=== PATIENT | female | born 1995 | race Caucasian/White ===

== ENCOUNTER 2017-03-05 22:59 | Emergency (ER) | payer BC, OTHER ==
[2017-03-05 23:06] VITALS: BMI 26.6
[2017-03-05 23:12] VITALS: BP 114/61
--- NOTE | 2017-03-05 23:44 | DR.GENAD ---
HPI - PCP Primary Care Physician: MARITZA - Complaint/Symptoms Chief Complaint:: CRAMPING/KIRILL LIKE PAIN; 14 WEEKS ; STARTED 40 MINUTES AGO; NOTICED BLOOD IN STOOL THIS EVENING; NO VAG SPOTTING Self Treatment fo Chief Complaint: CRAMPING STARTED 40 MINUTES AGO - Source History Provided: Patient - Mode of Arrival Mode of Arrival: Ambulatory - Timing Onset of Chief Complaint: 03/05/17 PMH - PMH Past Medical History: No Past Surgical History: No - Family History History of Family Medical Conditions: No - Social History Alcohol Use: None Do you use any recreational Drugs:: No Lives With: Spouse Lives Where: Home - infectious screening In the last 2 months have you had wt loss of >10#?: NO Have you had fever, night sweats or hemotysis?: No Have you traveled outside the country in the last 6 months?: No ROS - Review of Systems Eyes: No Symptoms Reported ENTM: No Symptoms Reported Respiratoy: No Symptoms Reported Cardiovascular: No Symptoms Reported Gastrointestinal/Abdominal: No Symptoms Reported Genitourinary: No Symptoms Reported Neurological: No Symptoms Reported Musculoskeletal: No Symptoms Reported Integumentary: No Symptoms Reported Hematologic/Lymphatic: No Symptoms Reported Endocrine: No Symptoms Reported Psychiatric: No Symptoms Reported All Other Systems: Reviewed and Negative PE - Vital Signs Vitals: Temperature 99.5 F Pulse Rate [Right Brachial] 94 Respiratory Rate 24 Blood Pressure [Left Arm] 114/61 Blood Pressure 131/56 O2 Sat by Pulse Oximetry 98 - General Limitations: No Limitations General Appearance: Alert, In No Apparent Distress - Head Head Exam: Normal Inspection, Atraumatic - Eyes Eye exam: Normal Appearance, PERRL, EOMI - ENT ENT Exam: Normal Exam External Ear Exam: Normal External Inspection TM/Canal Exam: Bilateral Normal Nose Exam: Normal Nose Exam Mouth Exam: Normal Inspection Throat Exam: Normal Inspection - Neck Neck Exam: Normal Inspection - Chest Chest Inspection: Normal Inspection - Respiratory Respiratory Exam: Normal Lung Sounds Bilat Respiratory Exam: Bilateral Clear to Auscultation - Cardiovascular Cardiovascular Exam: Regular Rate - Abdominal Exam Abdominal Exam: Normal Inspection, Normal Bowel Sounds Abdominal Tenderness: negative: RUQ, RLQ, LUQ, LLQ, Epigastrium, Suprapubic, Diffuse, Mild, Moderate, Severe, Other - Extremities Extremities Exam: Normal Inspection, Full ROM - Back Back Exam: Normal Inspection - Neurologic Neurological Exam: Alert, Oriented X3, CN II-XII Intact - Psychiatric Psychiatric Exam: Normal Affect - Skin Skin Exam: Warm, Dry, Intact ROR - Labs Reviewed Result Diagrams: 03/05/17 23:45 03/05/17 23:45 Laboratory: WBC 9.5 X10^3/uL (3.6-10.0) 03/05/17 23:45 RBC 4.18 X10^6/uL (3.5-5.4) 03/05/17 23:45 Hgb 12.8 g/dL (12.0-16.0) 03/05/17 23:45 Hct 37.0 % (36.0-47.0) 03/05/17 23:45 MCV 88.5 fL (80.0-100.0) 03/05/17 23:45 MCH 30.6 pg (27.0-34.0) 03/05/17 23:45 MCHC 34.6 g/dL (33.0-35.0) 03/05/17 23:45 RDW 13.0 % (11.6-16.5) 03/05/17 23:45 Plt Count 205 X10^3/uL (150.0-450.0) 03/05/17 23:45 MPV 9.5 fL (7.4-11.0) 03/05/17 23:45 Neut % 72.7 % (42.0-75.0) 03/05/17 23:45 Lymph % 16.2 % (21.0-51.0) L 03/05/17 23:45 [place] % 8.7 % (0.0-13.0) 03/05/17 23:45 Eos % 2.0 % (0.9-2.9) 03/05/17 23:45 Baso % 0.4 % (0.2-1.0) 03/05/17 23:45 Neut # 6.9 x10^3/uL (2.2-4.8) H 03/05/17 23:45 Lymph # 1.5 X10^3/uL (1.3-2.9) 03/05/17 23:45 [place] # 0.8 x10^3/uL (0.3-0.8) 03/05/17 23:45 Eos # 0.2 x10^3/uL (0.0-0.2) 03/05/17 23:45 Baso # 0.0 X10^3/uL (0.0-0.1) 03/05/17 23:45 Absolute Nucleated RBC 0.1 /100WBC 03/05/17 23:45 Sodium 139 mmol/L (136-145) 03/05/17 23:45 Corrected Sodium TNP 03/05/17 23:45 Potassium 3.7 mmol/L (3.5-5.1) 03/05/17 23:45 Chloride 105 mmol/L (98-107) 03/05/17 23:45 Carbon Dioxide 24.6 mmol/L (21-32) 03/05/17 23:45 BUN 7 mg/dL (7-18) 03/05/17 23:45 Creatinine 0.59 mg/dL (0.55-1.02) 03/05/17 23:45 Est GFR (MDRD) Af Amer > 60 (>60) 03/05/17 23:45 Est GFR (MDRD) Non-Af > 60 (>60) 03/05/17 23:45 Glucose 89 mg/dL (65-99) 03/05/17 23:45 Calcium 8.8 mg/dL (8.5-10.1) 03/05/17 23:45 HCG, Qual Positive >10 mIU/mL 03/05/17 23:45 HCG, Quant 20946 mIU/mL (0-6) H 03/05/17 23:45 - XRAY XRAY Interpreted by: Radiologist (OB US: Findings: A viable single intrauterine is identified with heart tones of 152 beats per minute. [place]- rump length measures 8.1cm. A cephalic presentation is observed with an anterior and fundal placenta. Impression: A viable single intrauterine with an average ultrasound age of 14 weeks, 0 days correspond to an estimated date of delivery of 09/04/2017) - Diagnosis Discharge Problem: Intrauterine - Discharge Plan Condition: Stable - Follow ups/Referrals Follow ups/Referrals: GUERO SALAS [Primary Care Provider] - 3 days - Instructions
[2017-03-06 00:04] LABS: BLOOD UREA NITROGEN 7 mg/dL (7-18); CALCIUM 8.8 mg/dL (8.5-10.1); CARBON DIOXIDE 24.6 mmol/L (21-32); CHLORIDE 105 mmol/L (98-107); CREATININE 0.59 mg/dL (0.55-1.02); SODIUM 139 mmol/L (136-145); eGFR BLACK RACES > 60 (>60); eGFR NON BLACK RACES > 60 (>60)
[2017-03-06 00:07] LABS: BASOPHILS % (AUTO) 0.4 % (0.2-1.0); EOSINOPHILS # (AUTO) 0.2 x10^3/uL (0.0-0.2); HEMOGLOBIN 12.8 g/dL (12.0-16.0); LYMPHOCYTES # (AUTO) 1.5 X10^3/uL (1.3-2.9); LYMPHOCYTES % (AUTO) 16.2 % (21.0-51.0); MEAN CORPUSCULAR HEMOGLOBIN 30.6 pg (27.0-34.0); MEAN CORPUSCULAR HGB CONC 34.6 g/dL (33.0-35.0); MEAN CORPUSCULAR VOLUME 88.5 fL (80.0-100.0); MEAN PLATELET VOLUME 9.5 fL (7.4-11.0); MONOCYTES # (AUTO) 0.8 x10^3/uL (0.3-0.8); MONOCYTES % (AUTO) 8.7 % (0.0-13.0); NEUTROPHILS # (AUTO) 6.9 x10^3/uL (2.2-4.8); NEUTROPHILS % (AUTO) 72.7 % (42.0-75.0); PLATELET COUNT 205 X10^3/uL (150.0-450.0); RED BLOOD COUNT 4.18 X10^6/uL (3.5-5.4); WHITE BLOOD COUNT 9.5 X10^3/uL (3.6-10.0)
[2017-03-06 00:14] LABS: SERUM PREGNANCY TEST, QUAL POSITIVE >10 mIU/mL
--- NOTE | 2017-03-06 01:41 | US ---
HISTORY: with cramping Study: OB ultrasound, limited Comparison: None for the current Technique: Multiple grayscale and color flow Doppler images of the pelvis were obtained with focused evaluation of the fetus. Findings: A viable single intrauterine is identified with heart tones of 152 beats per minute. [place]-rump length measures 8.1 cm. A cephalic presentation is observed with an anterior and fundal pl acenta. IMPRESSION: A viable single intrauterine with an average ultrasound age of 14 weeks, 0 days correspond to an estimated date of delivery of 09/04/2017. Reported By:
== END 2017-03-06 02:05 | disposition home or self-care (01) ==
LOC: ER 22:59
DX: R10.84 Generalized abdominal pain (principal); Z3A.14 14 weeks gestation of pregnancy
CPT/HCPCS: 36415; 76815; 80048; 84702; 84703; 85025; 99283; 99284

== ENCOUNTER 2017-07-15 22:45 | Emergency (ER) | payer BC, OTHER ==
[2017-07-15 23:26] VITALS: BP 117/55; BMI 32.5
[2017-07-15 23:44] LABS: BILIRUBIN,URINE NEGATIVE (NEGATIVE); BLOOD/HEMOGLOBIN,URINE 1+ (NEGATIVE); GLUCOSE, URINE NEGATIVE (NEGATIVE); KETONES,URINE NEGATIVE (NEGATIVE); LEUKOCYTE ESTERASE ,URINE NEGATIVE (NEGATIVE); NITRITES,URINE NEGATIVE (NEGATIVE); PH,URINE 6.5 (5.0 - 8.0); PROTEIN,URINE NEGATIVE (NEGATIVE); UROBILINOGEN,URINE NORMAL (NORMAL)
[2017-07-15 23:57] LABS: APPEARANCE,URINE SLIGHTLY HAZY (CLEAR); COLOR,URINE YELLOW (YELLOW)
[2017-07-15 23:58] LABS: AMORPHOUS SEDIMENT,UR 3+ /HPF (NEGATIVE); BACTERIA,URINE NEGATIVE /HPF (NEGATIVE); CALCIUM OXALATE CRYSTALS,UR FEW /HPF (NEGATIVE); RBC,URINE 0-2 /HPF (NONE SEEN); SQUAMOUS EPITHELIAL CELL,UR MODERATE /HPF (NEGATIVE)
== END 2017-07-16 00:11 | disposition home or self-care (01) ==
LOC: ER 22:45
DX: M54.89 Other dorsalgia (principal); Z3A.00 Weeks of gestation of pregnancy not specified
CPT/HCPCS: 81001; 99284

== ENCOUNTER 2017-07-25 18:37 | Emergency (ER) | payer BC, OTHER ==
[2017-07-25 18:57] VITALS: BP 116/75; BMI 31.9
[2017-07-25 19:05] LABS: BILIRUBIN,URINE NEGATIVE (NEGATIVE); BLOOD/HEMOGLOBIN,URINE NEGATIVE (NEGATIVE); GLUCOSE, URINE NEGATIVE (NEGATIVE); KETONES,URINE NEGATIVE (NEGATIVE); LEUKOCYTE ESTERASE ,URINE 1+ (NEGATIVE); NITRITES,URINE NEGATIVE (NEGATIVE); PROTEIN,URINE 1+ (NEGATIVE); UROBILINOGEN,URINE NORMAL (NORMAL)
[2017-07-25 19:15] LABS: AMORPHOUS SEDIMENT,UR 1+ /HPF (NEGATIVE); APPEARANCE,URINE CLOUDY (CLEAR); BACTERIA,URINE 1+ /HPF (NEGATIVE); COLOR,URINE YELLOW (YELLOW); SQUAMOUS EPITHELIAL CELL,UR FEW /HPF (NEGATIVE)
[2017-07-25] MEDS ORDERED: NS 1000 ML 1,000 ML IV ONE (19:20)
[2017-07-25] MEDS ORDERED: NS 1000 ML 1,000 ML ONE (19:23)
[2017-07-25] MEDS ORDERED: FLAGYL TAB 500 MG PO ONE (19:57)
[2017-07-25] MEDS ORDERED: FLAGYL TAB 250 MG PO ONE (20:02)
== END 2017-07-25 20:36 | disposition home or self-care (01) ==
LOC: ER 18:40
DX: O60.03 Preterm labor without delivery, third trimester (principal)
CPT/HCPCS: 81001; 87086; 96365; 99284; A4222

== ENCOUNTER 2017-08-17 00:33 | Inpatient (IN) ==
[~2017-08-17 00:33] MED LIST: D5 1/2 NS 1000 ML 1,000 ML IV ONE
[2017-08-17] MEDS ORDERED: PITOCIN IVP ONE (00:54)
[2017-08-17] MEDS ORDERED: PHENERGAN INJ 25 MG IVP PRN (00:54)
[2017-08-17] MEDS ORDERED: REGLAN INJ 10 MG VIAL IVP PRN (00:54)
[2017-08-17] MEDS ORDERED: D5LR 1L W PITOCIN 10 UNITS/L 10 UNITS/1,000 ML BAG IV PRN (00:54)
[2017-08-17] MEDS ORDERED: DILAUDID INJ IVP PRN (00:54)
[2017-08-17] MEDS ORDERED: NUBAIN INJ 200 MG VIAL MULTIDOSE IVP PRN (00:54)
[2017-08-17 00:56] VITALS: BMI 33.3
[2017-08-17] MEDS ORDERED: LR 1000 ML IV 1,000 ML IV ONE ×2 (00:57→01:00)
[2017-08-17] MEDS ORDERED: NAROPIN EPIDURAL 0.2% 97 ML with FENTANYL INJ 250 mcg 150 MCG EPI PRN ×2 (00:57)
[2017-08-17] MEDS ORDERED: D5 1/2 NS 1000 ML 1,000 ML IV SCH (01:00)
[2017-08-17] MEDS ORDERED: XYLOCAINE 1% and EPINEPHRINE 1:100,000 ONE (01:00)
[2017-08-17] MEDS ORDERED: AMPICILLIN VIAL 2 GRAM 2 G in NS 100 ML IV + SPIKE MINIBAG* 100 ML IV SCH (01:00)
[2017-08-17] MEDS ORDERED: FENTANYL INJ 100 mcg ONE (01:01)
[2017-08-17] MEDS ORDERED: NS 100 ML IV 100 ML IV ONE (01:01)
[2017-08-17] MEDS ORDERED: PITOCIN ONE (01:01)
[2017-08-17] MEDS ORDERED: XYLOCAINE-MPF 1% ONE (01:01)
[2017-08-17] MEDS ORDERED: NAROPIN EPIDURAL 0.2% + FENTANYL 90MCG 60 ML EPI ONE (01:02)
[2017-08-17] MEDS ORDERED: D5 1/2 NS 1L W PITOCIN 20 UNITS/L 20 UNITS/1,000 ML BAG IV ONE (01:02)
[2017-08-17 01:10] LABS: BASOPHILS % (AUTO) 0.3 % (0.2-1.0); BLOOD UREA NITROGEN 6 mg/dL (7-18); CALCIUM 9.6 mg/dL (8.5-10.1); CARBON DIOXIDE 20.3 mmol/L (21-32); CHLORIDE 105 mmol/L (98-107); CREATININE 0.76 mg/dL (0.55-1.02); EOSINOPHILS # (AUTO) 0.2 x10^3/uL (0.0-0.2); HEMATOCRIT 37.7 % (36.0-47.0); HEMOGLOBIN 13.2 g/dL (12.0-16.0); LYMPHOCYTES # (AUTO) 2.7 X10^3/uL (1.3-2.9); LYMPHOCYTES % (AUTO) 18.2 % (21.0-51.0); MEAN CORPUSCULAR HEMOGLOBIN 31.4 pg (27.0-34.0); MEAN CORPUSCULAR VOLUME 89.7 fL (80.0-100.0); MEAN PLATELET VOLUME 10.3 fL (7.4-11.0); MONOCYTES # (AUTO) 1.1 x10^3/uL (0.3-0.8); MONOCYTES % (AUTO) 7.2 % (0.0-13.0); NEUTROPHILS # (AUTO) 10.9 x10^3/uL (2.2-4.8); NEUTROPHILS % (AUTO) 73.3 % (42.0-75.0); PLATELET COUNT 246 X10^3/uL (150.0-450.0); RED CELL DISTRIBUTION WIDTH 13.8 % (11.6-16.5); SODIUM 138 mmol/L (136-145); WHITE BLOOD COUNT 14.9 X10^3/uL (3.6-10.0); eGFR NON BLACK RACES > 60 (>60)
[2017-08-17] MEDS: AMPICILLIN VIAL 2 GRAM ONE ×2 (01:25→02:26)
[2017-08-17 01:53] LABS: BILIRUBIN,URINE NEGATIVE (NEGATIVE); BLOOD/HEMOGLOBIN,URINE NEGATIVE (NEGATIVE); GLUCOSE, URINE NEGATIVE (NEGATIVE); KETONES,URINE NEGATIVE (NEGATIVE); LEUKOCYTE ESTERASE ,URINE NEGATIVE (NEGATIVE); NITRITES,URINE NEGATIVE (NEGATIVE); PH,URINE 6.5 (5.0 - 8.0); PROTEIN,URINE NEGATIVE (NEGATIVE); UROBILINOGEN,URINE NORMAL (NORMAL)
[2017-08-17 01:55] LABS: APPEARANCE,URINE CLEAR (CLEAR); COLOR,URINE YELLOW (YELLOW)
[2017-08-17] MEDS ORDERED: AMPICILLIN VIAL 1 GRAM 1 G in NS 50 ML IV + SPIKE MINIBAG* 50 ML IV SCH (04:56)
[2017-08-17] MEDS ORDERED: PHENERGAN INJ 25 MG IV PRN (06:50)
--- NOTE | 2017-08-17 06:50 | DR.OB ---
OB Quick Note - Assessment/Plan Assessment/Plan: Delivery Note [employer] 08/17/17 at 6:38am Patient complete and pushing. Head delivered over intact perineum. No nuchal cord. Nose and mouth bulb suctioned. Body delivered over intact perineum with cord noted around trunk. Cord clamped x 2 and cut. handed to attendant. Cord sent for gases. Placenta delivered spontaneously / intact / 3 vessel cord. No CVX / vaginal / perineal tears. Viable male infant, VTX/OA, wt =6'6" and 9/9, stable to NBN. Mother stable to RR. JWS=165as.
[2017-08-17] MEDS ORDERED: PHENERGAN INJ 25 MG ONE (06:59)
[2017-08-17] MEDS: D5 1/2 NS 1000 ML 1,000 ML with PITOCIN 20 UNITS IV SCH ×6 (07:24→23:50)
[2017-08-17] MEDS ORDERED: MILK OF MAGNESIA PO PRN (07:25)
[2017-08-17] MEDS ORDERED: DERMOPLAST SPRAY TOP PRN (07:25)
[2017-08-17] MEDS ORDERED: AMBIEN PO PRN (07:25)
[2017-08-17] MEDS ORDERED: ADACEL or BOOSTRIX TDaP VACCINE IM ONE (07:25)
[2017-08-17] MEDS ORDERED: HYPERRHO S/D (or RHOGAM) IM PRN (07:25)
[2017-08-17] MEDS: ZANTAC PO SCH ×2 (09:14→20:09)
[2017-08-17] MEDS: PRENATAL PLUS PO SCH (09:14)
[2017-08-17] MEDS: MOTRIN TAB 800 MG PO PRN (20:09)
[2017-08-18 05:40] LABS: HEMATOCRIT 32.4 % (36.0-47.0); HEMOGLOBIN 11.1 g/dL (12.0-16.0)
[2017-08-18] MEDS: MOTRIN TAB 800 MG PO PRN (07:28)
[2017-08-18] MEDS: ZANTAC PO SCH ×2 (08:08→20:28)
[2017-08-18] MEDS: PRENATAL PLUS PO SCH (08:08)
[2017-08-18] MEDS: D5 1/2 NS 1000 ML 1,000 ML with PITOCIN 20 UNITS IV SCH ×2 (17:00)
[2017-08-19] MEDS: D5 1/2 NS 1000 ML 1,000 ML with PITOCIN 20 UNITS IV SCH ×4 (00:14→07:16)
[2017-08-19] MEDS: PRENATAL PLUS PO SCH (09:09)
[2017-08-19] MEDS: ZANTAC PO SCH (09:09)
[2017-08-19 12:09] VITALS: BP 121/73
== END 2017-08-19 12:45 | disposition home or self-care (01) | DRG 775 ==
LOC: ER 00:33 → LD 00:54 → MED/SURG 07:23
PROVIDERS: ADMIT Specialist; ATTEND Specialist
DX: O99.613 Diseases of the digestive system complicating pregnancy, third trimester; O99.824 Streptococcus B carrier state complicating childbirth; O36.0930 Maternal care for other rhesus isoimmunization, third trimester, not applicable or unspecified; Z3A.37 37 weeks gestation of pregnancy; Z37.0 Single live birth; Z23 Encounter for immunization; B95.1 Streptococcus, group B, as the cause of diseases classified elsewhere
CPT/HCPCS: 36415; 59409; 80048; 81003; 85014; 85018; 85025; 86592; 86850; 86900; 86901; 90715; 96365; 99284; A4222; S0197; J0290; J2550; J2590; J3010; J7050; J7120; S5010

== ENCOUNTER 2019-04-30 07:03 | Observation (INO) ==
[2019-04-30 07:21] VITALS: BMI 24.5
[2019-04-30] MEDS ORDERED: ZOFRAN INJ 4 MG VIAL IVP ONE (07:29)
[2019-04-30] MEDS ORDERED: NS 1000 ML 1,000 ML IV ONE (07:29)
[2019-04-30] MEDS ORDERED: NS 1000 ML 1,000 ML ONE (07:33)
[2019-04-30] MEDS ORDERED: ZOFRAN INJ 4 MG VIAL ONE (07:34)
--- NOTE | 2019-04-30 07:36 | ED.ABDFE ---
HPI <Alina Reese - Last Filed: 04/30/19 07:52> Time Seen Time Seen by Provider: 04/30/19 07:25 PCP Primary Care Physician: KURTIS GARCIA HPI Comment HPI Comment: Started w/lower abd cramping last night and awakened w/n/v this am which has persisted; no fever, chills or vaginal bleeding; loose, watery stool around 6 am this morning; 14 weeks ; third ; to see Dr Andrews next week. Complaint Chief Complaint:: PT STATES SHE IS 14 WEEK PREG, PT C/O N/V AND ABD CRAMPING ,BR Self Treatment fo Chief Complaint: BRUCE- Oct LMP- Source History Provided: Patient Mode of arrival Mode of Arrival: Ambulatory Timing Onset of Chief Complaint: 04/29/19 PMH <Alina Reese - Last Filed: 04/30/19 07:52> PMH Past Medical History: No Past Surgical History: No Family History History of Family Medical Conditions: No Social History Does patient currently use any type of tobacco product: No Have you used tobacco products in the last 12 months: No Type of Tobacco Use: None Does any household member use tobacco: No Do you use any recreational Drugs:: No Lives With: Family Lives Where: Home infectious screening In the last 2 months have you had wt loss of >10#?: NO Have you had fever, night sweats or hemotysis?: No Have you traveled outside the country in the last 6 months?: No Isolation: Standard ROS <Alina Hugh - Last Filed: 04/30/19 07:52> Review of Systems Constitutional: See HPI and Malaise Respiratoy: No Symptoms Reported Cardiovascular: No Symptoms Reported Gastrointestinal/Abdominal: See HPI Genitourinary: Frequency (no dysuria or hematuria) Neurological: No Symptoms Reported Musculoskeletal: No Symptoms Reported Integumentary: No Symptoms Reported Hematologic/Lymphatic: No Symptoms Reported Endocrine: No Symptoms Reported PE <Alina Reese - Last Filed: 04/30/19 07:52> Vital Signs Vitals: Temperature 97.5 F Pulse Rate 107 Respiratory Rate 20 Blood Pressure [Right Arm] 123/78 Blood Pressure 83/48 O2 Sat by Pulse Oximetry 100 General Limitations: No Limitations General Appearance: Alert (obviously uncomfortable, actively throwing up) Head Head Exam: Normal Inspection, Atraumatic and Normocephalic Eyes Eye exam: Normal Appearance, PERRL and EOMI ENT ENT Exam: Normal Exam Neck Neck Exam: Normal Inspection, Full ROM and Trachea Midline Chest Chest Inspection: Normal Inspection Respiratory Respiratory Exam: Normal Lung Sounds Bilat Respiratory Exam: Bilateral: Clear to Auscultation Cardiovascular Cardiovascular Exam: Normal Rhythm and Tachycardia Abdominal Exam Abdominal Exam: Normal Inspection, Soft and Tenderness Abdominal Tenderness: Suprapubic and Mild Extremeties Extremities Exam: Normal Inspection, Full ROM and Tenderness Neurologic Neurological Exam: Alert, Oriented X3 and CN II-XII Intact Skin Skin Exam: Warm and Dry <Aryan Zenialissette - Last Filed: 04/30/19 10:15> Vital Signs Vitals: Temperature 97.5 F Pulse Rate 107 Respiratory Rate 20 Blood Pressure [Right Arm] 123/78 Blood Pressure 83/48 O2 Sat by Pulse Oximetry 100 <Aryan Yesenia - Last Filed: 04/30/19 10:15> Differential Diagnosis Differential Diagnosis- Considerations may include:: Appendicitis, Bowel Obstruction, Cholcystitis, Cholelethiasis, Constipation, Diverticular disease, Gastritus/PUD, Urinary obstruction and Urinary tract infection <Aryan Yesenia - Last Filed: 04/30/19 10:15> Treatment Treatment: pt was given IV bolus, Zofran, pt stated understanding of risk and benefit to fetus with use of zofran Reevaluation 1st: Improved (08:30 stable abdominal pain improved) 2nd: Unchanged (09:38 discussed w/ pt finding on US and how pt was going to be admitted ) Consultation Consultation Comments: Dr. Anne accepts admission at 09:38 Dr. Horvath discussed case with him @ 09:25 Education/Counseling Education/Counseling: Patient, Family, Education and Counseling Educated On: Treatment, Diagnosis, Prognosis and Needs for Follow Up ROR <Alina Reese - Last Filed: 04/30/19 07:52> Labs Reviewed Result Diagrams: 04/30/19 07:40 04/30/19 07:40 Laboratory: WBC 19.6 X10^3/uL (3.6-10.0) H 04/30/19 07:40 RBC 4.64 X10^6/uL (3.5-5.4) 04/30/19 07:40 Hgb 14.4 g/dL (12.0-16.0) 04/30/19 07:40 Hct 41.9 % (36.0-47.0) 04/30/19 07:40 MCV 90.3 fL (80.0-100.0) 04/30/19 07:40 MCH 31.0 pg (27.0-34.0) 04/30/19 07:40 MCHC 34.3 g/dL (33.0-35.0) 04/30/19 07:40 RDW 14.0 % (11.6-16.5) 04/30/19 07:40 Plt Count 223 X10^3/uL (150.0-450.0) 04/30/19 07:40 Plt Count Comment Adequate (ADEQUATE) 04/30/19 07:40 MPV 9.3 fL (7.4-11.0) 04/30/19 07:40 Neut % (Auto) 92.9 % (42.0-75.0) H 04/30/19 07:40 Lymph % (Auto) 2.0 % (21.0-51.0) L 04/30/19 07:40 [place] % (Auto) 4.8 % (0.0-13.0) 04/30/19 07:40 Eos % (Auto) 0.1 % (0.9-2.9) L 04/30/19 07:40 Baso % (Auto) 0.2 % (0.2-1.0) 04/30/19 07:40 Neut # (Auto) 18.2 x10^3/uL (2.2-4.8) H 04/30/19 07:40 Lymph # (Auto) 0.4 X10^3/uL (1.3-2.9) L 04/30/19 07:40 [place] # (Auto) 0.9 x10^3/uL (0.3-0.8) H 04/30/19 07:40 Eos # (Auto) 0.0 x10^3/uL (0.0-0.2) 04/30/19 07:40 Baso # (Auto) 0.0 X10^3/uL (0.0-0.1) 04/30/19 07:40 Absolute Nucleated RBC 0.0 /100WBC 04/30/19 07:40 Total Counted 100 04/30/19 07:40 Neutrophils % (Manual) 89 % (39-76) H 04/30/19 07:40 Band Neutrophils % 3 % (0-10) 04/30/19 07:40 Lymphocytes % (Manual) 7 % (13-43) L 04/30/19 07:40 Monocytes % (Manual) 1 % (4-9) L 04/30/19 07:40 Plt Morphology Comment Normal (NORMAL) 04/30/19 07:40 RBC Morphology Normal (NORMAL) 04/30/19 07:40 Sodium 137 mmol/L (136-145) 04/30/19 07:40 Corrected Sodium TNP 04/30/19 07:40 Potassium 3.6 mmol/L (3.5-5.1) 04/30/19 07:40 Chloride 102 mmol/L (98-107) 04/30/19 07:40 Carbon Dioxide 23.9 mmol/L (21-32) 04/30/19 07:40 BUN 11 mg/dL (7-18) 04/30/19 07:40 Creatinine 0.69 mg/dL (0.55-1.02) 04/30/19 07:40 Est GFR (MDRD) Af Amer > 60 (>60) 04/30/19 07:40 Est GFR (MDRD) Non-Af > 60 (>60) 04/30/19 07:40 Glucose 101 mg/dL (65-99) H 04/30/19 07:40 Calcium 8.9 mg/dL (8.5-10.1) 04/30/19 07:40 Corrected Calcium TNP 04/30/19 07:40 Total Bilirubin 0.70 mg/dL (0.2-1.0) 04/30/19 07:40 AST 18 Units/L (15-37) 04/30/19 07:40 ALT 21 Units/L (12-78) 04/30/19 07:40 Alkaline Phosphatase 58 Units/L (46-116) 04/30/19 07:40 Total Protein 7.6 g/dL (6.4-8.2) 04/30/19 07:40 Albumin 3.5 g/dL (3.4-5.0) 04/30/19 07:40 Globulin 4.1 g/dL (2.5-4.5) 04/30/19 07:40 Albumin/Globulin Ratio 0.9 Ratio (1.1-2.1) L 04/30/19 07:40 HCG, Quant 71635 mIU/mL (0-6) H 04/30/19 07:40 Specimen Type Clean catch urine 04/30/19 08:38 Urine Color Yellow (YELLOW) 04/30/19 08:38 Urine Appearance Hazy (CLEAR) 04/30/19 08:38 Urine pH 5.0 (5.0 - 8.0) 04/30/19 08:38 Ur Specific [place] 1.020 (1.000-1.030) 04/30/19 08:38 Urine Protein 1+ (NEGATIVE) 04/30/19 08:38 Urine Glucose (UA) Negative (NEGATIVE) 04/30/19 08:38 Urine Ketones 2+ (NEGATIVE) 04/30/19 08:38 Urine Occult Blood Negative (NEGATIVE) 04/30/19 08:38 Urine Nitrite Negative (NEGATIVE) 04/30/19 08:38 Urine Bilirubin 1+ (NEGATIVE) 04/30/19 08:38 Urine Urobilinogen Normal (NORMAL) 04/30/19 08:38 Ur Leukocyte Esterase 1+ (NEGATIVE) 04/30/19 08:38 Urine RBC 0-2 /HPF (0-3) 04/30/19 08:38 Urine WBC 0-2 /HPF (0-5) 04/30/19 08:38 Ur Squamous Epith Cells Few /HPF (NEGATIVE) 04/30/19 08:38 Urine Bacteria Negative /HPF (NEGATIVE) 04/30/19 08:38 Urine Mucus Few /HPF (NEGATIVE) 04/30/19 08:38 Ur Culture Indicated? No/not indicated 04/30/19 08:38 <Aryan Patterson - Last Filed: 04/30/19 10:15> Labs Reviewed Laboratory Results Reviewed?: Yes Laboratory: WBC 19.6 X10^3/uL (3.6-10.0) H 04/30/19 07:40 RBC 4.64 X10^6/uL (3.5-5.4) 04/30/19 07:40 Hgb 14.4 g/dL (12.0-16.0) 04/30/19 07:40 Hct 41.9 % (36.0-47.0) 04/30/19 07:40 MCV 90.3 fL (80.0-100.0) 04/30/19 07:40 MCH 31.0 pg (27.0-34.0) 04/30/19 07:40 MCHC 34.3 g/dL (33.0-35.0) 04/30/19 07:40 RDW 14.0 % (11.6-16.5) 04/30/19 07:40 Plt Count 223 X10^3/uL (150.0-450.0) 04/30/19 07:40 Plt Count Comment Adequate (ADEQUATE) 04/30/19 07:40 MPV 9.3 fL (7.4-11.0) 04/30/19 07:40 Neut % (Auto) 92.9 % (42.0-75.0) H 04/30/19 07:40 Lymph % (Auto) 2.0 % (21.0-51.0) L 04/30/19 07:40 [place] % (Auto) 4.8 % (0.0-13.0) 04/30/19 07:40 Eos % (Auto) 0.1 % (0.9-2.9) L 04/30/19 07:40 Baso % (Auto) 0.2 % (0.2-1.0) 04/30/19 07:40 Neut # (Auto) 18.2 x10^3/uL (2.2-4.8) H 04/30/19 07:40 Lymph # (Auto) 0.4 X10^3/uL (1.3-2.9) L 04/30/19 07:40 [place] # (Auto) 0.9 x10^3/uL (0.3-0.8) H 04/30/19 07:40 Eos # (Auto) 0.0 x10^3/uL (0.0-0.2) 04/30/19 07:40 Baso # (Auto) 0.0 X10^3/uL (0.0-0.1) 04/30/19 07:40 Absolute Nucleated RBC 0.0 /100WBC 04/30/19 07:40 Total Counted 100 04/30/19 07:40 Neutrophils % (Manual) 89 % (39-76) H 04/30/19 07:40 Band Neutrophils % 3 % (0-10) 04/30/19 07:40 Lymphocytes % (Manual) 7 % (13-43) L 04/30/19 07:40 Monocytes % (Manual) 1 % (4-9) L 04/30/19 07:40 Plt Morphology Comment Normal (NORMAL) 04/30/19 07:40 RBC Morphology Normal (NORMAL) 04/30/19 07:40 Sodium 137 mmol/L (136-145) 04/30/19 07:40 Corrected Sodium TNP 04/30/19 07:40 Potassium 3.6 mmol/L (3.5-5.1) 04/30/19 07:40 Chloride 102 mmol/L (98-107) 04/30/19 07:40 Carbon Dioxide 23.9 mmol/L (21-32) 04/30/19 07:40 BUN 11 mg/dL (7-18) 04/30/19 07:40 Creatinine 0.69 mg/dL (0.55-1.02) 04/30/19 07:40 Est GFR (MDRD) Af Amer > 60 (>60) 04/30/19 07:40 Est GFR (MDRD) Non-Af > 60 (>60) 04/30/19 07:40 Glucose 101 mg/dL (65-99) H 04/30/19 07:40 Calcium 8.9 mg/dL (8.5-10.1) 04/30/19 07:40 Corrected Calcium TNP 04/30/19 07:40 Total Bilirubin 0.70 mg/dL (0.2-1.0) 04/30/19 07:40 AST 18 Units/L (15-37) 04/30/19 07:40 ALT 21 Units/L (12-78) 04/30/19 07:40 Alkaline Phosphatase 58 Units/L (46-116) 04/30/19 07:40 Total Protein 7.6 g/dL (6.4-8.2) 04/30/19 07:40 Albumin 3.5 g/dL (3.4-5.0) 04/30/19 07:40 Globulin 4.1 g/dL (2.5-4.5) 04/30/19 07:40 Albumin/Globulin Ratio 0.9 Ratio (1.1-2.1) L 04/30/19 07:40 HCG, Quant 42514 mIU/mL (0-6) H 04/30/19 07:40 Specimen Type Clean catch urine 04/30/19 08:38 Urine Color Yellow (YELLOW) 04/30/19 08:38 Urine Appearance Hazy (CLEAR) 04/30/19 08:38 Urine pH 5.0 (5.0 - 8.0) 04/30/19 08:38 Ur Specific [place] 1.020 (1.000-1.030) 04/30/19 08:38 Urine Protein 1+ (NEGATIVE) 04/30/19 08:38 Urine Glucose (UA) Negative (NEGATIVE) 04/30/19 08:38 Urine Ketones 2+ (NEGATIVE) 04/30/19 08:38 Urine Occult Blood Negative (NEGATIVE) 04/30/19 08:38 Urine Nitrite Negative (NEGATIVE) 04/30/19 08:38 Urine Bilirubin 1+ (NEGATIVE) 04/30/19 08:38 Urine Urobilinogen Normal (NORMAL) 04/30/19 08:38 Ur Leukocyte Esterase 1+ (NEGATIVE) 04/30/19 08:38 Urine RBC 0-2 /HPF (0-3) 04/30/19 08:38 Urine WBC 0-2 /HPF (0-5) 04/30/19 08:38 Ur Squamous Epith Cells Few /HPF (NEGATIVE) 04/30/19 08:38 Urine Bacteria Negative /HPF (NEGATIVE) 04/30/19 08:38 Urine Mucus Few /HPF (NEGATIVE) 04/30/19 08:38 Ur Culture Indicated? No/not indicated 04/30/19 08:38 Other Results Comments: US gallbladder shows: gallstones without cholecystitis US obgyn: see below Name: UZMA GARDNER : 1995 Sex: F Location: ER Order Number(s): [id number] Procedure(s):OB GREATER THAN 14 WEEKS LIMIT Ordering Physician: Alina Reese Primary Care: Flakita Coelho Service Date: 04/30/19 Service Time: 0729 HISTORY , right upper quadrant abdominal pain, nausea, vomiting STUDY OB GREATER THAN 14 WEEKS LIMIT Technique: Multiple grayscale sonographic images were obtained. COMPARISON None FINDINGS There is a single intrauterine gestation in transverse lie. The placenta is anterior and extends to the right. heart rate 153 beats per minute. Amniotic fluid volume was visually normal. Biparietal diameter 2.04 cm corresponding to 13 weeks 2 days. Head circumference 8.3 cm corresponding to 13 weeks 6 days. Abdominal circumference the 7.29 cm corresponding to 13 weeks days. Femur length 1.16 cm corresponding to 13 weeks 3 days. Estimated weight 79 grams IMPRESSION Single viable intrauterine gestation 13 weeks 4 days +/-1 week gestational age with an estimated date of delivery 11/01/2019 XRAY XRAY Interpreted by: Both Opioid <Alina Reese - Last Filed: 04/30/19 07:52> Opioid Risk Tool Age ([place] box if 16-45): Yes History of Preadolescent Sexual Abuse: No Total: 1 Total Score Risk Category: Low Risk Copyright: Thaddeus CHAO predicting aberrant behaviors <Aryan Patterson - Last Filed: 04/30/19 10:15> Opioid Risk Tool Total: 0 Total Score Risk Category: Low Risk <Alina Reese - Last Filed: 04/30/19 07:52> Diagnosis Discharge Problem: Intractable abdominal pain Cholelithiasis Qualifiers: Cholelithiasis location: gallbladder Cholecystitis presence: without cholecystitis Biliary obstruction: without biliary obstruction Qualified Code(s): K80.20 - Calculus of gallbladder without cholecystitis without obstruction Abdominal pain Qualifiers: Abdominal location: generalized Qualified Code(s): R10.84 - Generalized abdominal pain Instructions Forms: Excuse From Work Patient Portal <Aryan Patterson - Last Filed: 04/30/19 10:15> Diagnosis Narrative Support Text: Today the patient was seen in the emergency department. All labs, imaging, consults with other specialists, and procedures were discussed with the patient and or patients family. All emergent needs such as pain mgmt, medical mgmt, Procedures, or consultations were addressed. The care plan has been discussed with the patient and or patients family. Patient and or family stated agreement and understanding of risks and benefits of care plans.
[2019-04-30] MEDS ORDERED: AMOXIL CAP 500 MG PO ONE (07:55)
[2019-04-30 08:03] LABS: BASOPHILS % (AUTO) 0.2 % (0.2-1.0); EOSINOPHILS % (AUTO) 0.1 % (0.9-2.9); HEMATOCRIT 41.9 % (36.0-47.0); HEMOGLOBIN 14.4 g/dL (12.0-16.0); LYMPHOCYTES # (AUTO) 0.4 X10^3/uL (1.3-2.9); MEAN CORPUSCULAR HGB CONC 34.3 g/dL (33.0-35.0); MEAN CORPUSCULAR VOLUME 90.3 fL (80.0-100.0); MEAN PLATELET VOLUME 9.3 fL (7.4-11.0); MONOCYTES # (AUTO) 0.9 x10^3/uL (0.3-0.8); MONOCYTES % (AUTO) 4.8 % (0.0-13.0); NEUTROPHILS # (AUTO) 18.2 x10^3/uL (2.2-4.8); NEUTROPHILS % (AUTO) 92.9 % (42.0-75.0); PLATELET COUNT 223 X10^3/uL (150.0-450.0); RED BLOOD COUNT 4.64 X10^6/uL (3.5-5.4); WHITE BLOOD COUNT 19.6 X10^3/uL (3.6-10.0)
[2019-04-30 08:07] LABS: ALANINE AMINOTRANSFERASE 21 Units/L (12-78); ALBUMIN 3.5 g/dL (3.4-5.0); ALKALINE PHOSPHATASE 58 Units/L (46-116); ASPARTATE AMINO TRANSFERASE 18 Units/L (15-37); BLOOD UREA NITROGEN 11 mg/dL (7-18); CALCIUM 8.9 mg/dL (8.5-10.1); CARBON DIOXIDE 23.9 mmol/L (21-32); CHLORIDE 102 mmol/L (98-107); CREATININE 0.69 mg/dL (0.55-1.02); SODIUM 137 mmol/L (136-145); TOTAL PROTEIN 7.6 g/dL (6.4-8.2); eGFR NON BLACK RACES > 60 (>60)
[2019-04-30 08:08] LABS: BAND NEUTROPHILS % 3 % (0-10)
[2019-04-30 08:09] LABS: PLATELET MORPHOLOGY COMMENT NORMAL (NORMAL)
[2019-04-30 08:41] LABS: HCG,QUANTITATIVE 39033 mIU/mL (0-6)
[2019-04-30 08:46] LABS: APPEARANCE,URINE HAZY (CLEAR); BILIRUBIN,URINE 1+ (NEGATIVE); BLOOD/HEMOGLOBIN,URINE NEGATIVE (NEGATIVE); COLOR,URINE YELLOW (YELLOW); GLUCOSE, URINE NEGATIVE (NEGATIVE); KETONES,URINE 2+ (NEGATIVE); LEUKOCYTE ESTERASE ,URINE 1+ (NEGATIVE); NITRITES,URINE NEGATIVE (NEGATIVE); PROTEIN,URINE 1+ (NEGATIVE); UROBILINOGEN,URINE NORMAL (NORMAL)
[2019-04-30 08:53] LABS: BACTERIA,URINE NEGATIVE /HPF (NEGATIVE); MUCUS,URINE FEW /HPF (NEGATIVE); RBC,URINE 0-2 /HPF (0-3); SQUAMOUS EPITHELIAL CELL,UR FEW /HPF (NEGATIVE)
--- NOTE | 2019-04-30 09:16 | US ---
HISTORYRight upper quadrant painSTUDYRight upper quadrant ultrasoundTechnique: Multiple grayscale sonographic images were obtained.COMPARISONNoneFINDINGSLiver is normal in size and configuration and without cyst, mass, or biliary ductal dilatation. Multiple gallstones are present within the gallbladder. There are no findings suggestive of cholecystitis. The head and body of the pancreas appear normal. The tail is obscured by overlying bowel gas. Gallbladder wall thickness is normal. The common duct measured 1.3 mm. The right kidney measured 9.6 cm in length. No solid masses, hydronephrosis, stones, or perinephric fluid collections are identified.IMPRESSIONCholelithiasis without evidence for cholecystitisElectronically signed by: RK ARCHULETA (Apr 30, 2019 09:14:30)
--- NOTE | 2019-04-30 09:38 | US ---
HISTORY, right upper quadrant abdominal pain, nausea, vomitingSTUDYOB GREATER THAN 14 WEEKS LIMITTechnique: Multiple grayscale sonographic images were obtained.COMPARISONNoneFINDINGSThere is a single intrauterine gestation in transverse lie. The placenta is anterior and extends to the right. heart rate 153 beats per minute. Amniotic fluid volume was visually normal. Biparietal diameter 2.04 cm corresponding to 13 weeks 2 days. Head circumference 8.3 cm corresponding to 13 weeks 6 days. Abdominal circumference the 7.29 cm corresponding to 13 weeks days. Femur length 1.16 cm corresponding to 13 weeks 3 days. Estimated weight 79 gramsIMPRESSIONSingle viable intrauterine gestation 13 weeks 4 days +/-1 week gestational age with an estimated date of delivery 11/01/2019Electronically signed by: RK ARCHULETA (Apr 30, 2019 09:38:13)
[2019-04-30] MEDS ORDERED: ZOFRAN INJ 4 MG VIAL IVP PRN ×2 (10:14→12:06)
[2019-04-30] MEDS ORDERED: NS 1000 ML 1,000 ML IV SCH ×2 (11:00→12:00)
[2019-04-30] MEDS: NS 1000 ML 1,000 ML IV SCH ×2 (13:37→22:33)
[2019-04-30 13:44] LABS: AMYLASE 76 Units/L (25-115); LIPASE 134 Units/L (73-393)
[2019-04-30] MEDS ORDERED: POTASSIUM CHLORIDE IV SCH ×2 (14:00)
[2019-04-30] MEDS ORDERED: NS IV SCH ×2 (14:00)
[2019-04-30] MEDS ORDERED: TYLENOL 325 MG TAB PO PRN (17:12)
[2019-05-01] MEDS: NS 1000 ML 1,000 ML IV SCH (06:17)
--- NOTE | 2019-05-01 09:35 | DR.PROGNOT ---
Hospital Progress Notes - Progress Note for Day of: Progress Note Date: 05/01/19 - Chief Complaint Chief Complaint: still c/o mid and Rt side abdominal pain . no vomiting today and tolerating liquid diet . afebrile . - Past Medical Family Social History Past Med/Fam/Surg Hx: No changes since H&P Allergies: Allergies No Known Drug Allergies Allergy (Verified 04/30/19 07:15) - Review Of Systems ROS: No change since H&P - Vital Signs Vital Signs: Temperature 97.9 F Pulse Rate [Right] 90 Pulse Rate 114 Respiratory Rate 16 Blood Pressure [Right Arm] 85/48 Blood Pressure 88/50 O2 Sat by Pulse Oximetry 96 - Physical Exam Oriented: Normal Eyes: Normal Nose: Normal Respiratory: Normal Cardiovascular: Normal : Normal GI:Auscultation: Normal GI:Palpation: Normal GI: Tenderness: RUQ (soft, flat abdomen with Rt side and RUQ tenderness , BS+), Periumbilical Speech Pattern: Clear, Appropriate - Laboratory and Diagnostics Result Diagrams: 04/30/19 07:40 04/30/19 07:40 Labs: Laboratory WBC 19.6 X10^3/uL (3.6-10.0) H 04/30/19 07:40 RBC 4.64 X10^6/uL (3.5-5.4) 04/30/19 07:40 Hgb 14.4 g/dL (12.0-16.0) 04/30/19 07:40 Hct 41.9 % (36.0-47.0) 04/30/19 07:40 MCV 90.3 fL (80.0-100.0) 04/30/19 07:40 MCH 31.0 pg (27.0-34.0) 04/30/19 07:40 MCHC 34.3 g/dL (33.0-35.0) 04/30/19 07:40 RDW 14.0 % (11.6-16.5) 04/30/19 07:40 Plt Count 223 X10^3/uL (150.0-450.0) 04/30/19 07:40 Plt Count Comment Adequate (ADEQUATE) 04/30/19 07:40 MPV 9.3 fL (7.4-11.0) 04/30/19 07:40 Neut % (Auto) 92.9 % (42.0-75.0) H 04/30/19 07:40 Lymph % (Auto) 2.0 % (21.0-51.0) L 04/30/19 07:40 [place] % (Auto) 4.8 % (0.0-13.0) 04/30/19 07:40 Eos % (Auto) 0.1 % (0.9-2.9) L 04/30/19 07:40 Baso % (Auto) 0.2 % (0.2-1.0) 04/30/19 07:40 Neut # (Auto) 18.2 x10^3/uL (2.2-4.8) H 04/30/19 07:40 Lymph # (Auto) 0.4 X10^3/uL (1.3-2.9) L 04/30/19 07:40 [place] # (Auto) 0.9 x10^3/uL (0.3-0.8) H 04/30/19 07:40 Eos # (Auto) 0.0 x10^3/uL (0.0-0.2) 04/30/19 07:40 Baso # (Auto) 0.0 X10^3/uL (0.0-0.1) 04/30/19 07:40 Absolute Nucleated RBC 0.0 /100WBC 04/30/19 07:40 Total Counted 100 04/30/19 07:40 Neutrophils % (Manual) 89 % (39-76) H 04/30/19 07:40 Band Neutrophils % 3 % (0-10) 04/30/19 07:40 Lymphocytes % (Manual) 7 % (13-43) L 04/30/19 07:40 Monocytes % (Manual) 1 % (4-9) L 04/30/19 07:40 Plt Morphology Comment Normal (NORMAL) 04/30/19 07:40 RBC Morphology Normal (NORMAL) 04/30/19 07:40 Sodium 137 mmol/L (136-145) 04/30/19 07:40 Corrected Sodium TNP 04/30/19 07:40 Potassium 3.6 mmol/L (3.5-5.1) 04/30/19 07:40 Chloride 102 mmol/L (98-107) 04/30/19 07:40 Carbon Dioxide 23.9 mmol/L (21-32) 04/30/19 07:40 BUN 11 mg/dL (7-18) 04/30/19 07:40 Creatinine 0.69 mg/dL (0.55-1.02) 04/30/19 07:40 Est GFR (MDRD) Af Amer > 60 (>60) 04/30/19 07:40 Est GFR (MDRD) Non-Af > 60 (>60) 04/30/19 07:40 Glucose 101 mg/dL (65-99) H 04/30/19 07:40 Calcium 8.9 mg/dL (8.5-10.1) 04/30/19 07:40 Corrected Calcium TNP 04/30/19 07:40 Total Bilirubin 0.70 mg/dL (0.2-1.0) 04/30/19 07:40 AST 18 Units/L (15-37) 04/30/19 07:40 ALT 21 Units/L (12-78) 04/30/19 07:40 Alkaline Phosphatase 58 Units/L (46-116) 04/30/19 07:40 Total Protein 7.6 g/dL (6.4-8.2) 04/30/19 07:40 Albumin 3.5 g/dL (3.4-5.0) 04/30/19 07:40 Globulin 4.1 g/dL (2.5-4.5) 04/30/19 07:40 Albumin/Globulin Ratio 0.9 Ratio (1.1-2.1) L 04/30/19 07:40 Amylase 76 Units/L (25-115) 04/30/19 07:40 Lipase 134 Units/L (73-393) 04/30/19 07:40 HCG, Quant 90483 mIU/mL (0-6) H 04/30/19 07:40 Specimen Type Clean catch urine 04/30/19 08:38 Urine Color Yellow (YELLOW) 04/30/19 08:38 Urine Appearance Hazy (CLEAR) 04/30/19 08:38 Urine pH 5.0 (5.0 - 8.0) 04/30/19 08:38 Ur Specific [place] 1.020 (1.000-1.030) 04/30/19 08:38 Urine Protein 1+ (NEGATIVE) 02/25/20 08:38 Urine Glucose (UA) Negative (NEGATIVE) 04/30/19 08:38 Urine Ketones 2+ (NEGATIVE) 04/30/19 08:38 Urine Occult Blood Negative (NEGATIVE) 04/30/19 08:38 Urine Nitrite Negative (NEGATIVE) 04/30/19 08:38 Urine Bilirubin 1+ (NEGATIVE) 04/30/19 08:38 Urine Urobilinogen Normal (NORMAL) 04/30/19 08:38 Ur Leukocyte Esterase 1+ (NEGATIVE) 04/30/19 08:38 Urine RBC 0-2 /HPF (0-3) 04/30/19 08:38 Urine WBC 0-2 /HPF (0-5) 04/30/19 08:38 Ur Squamous Epith Cells Few /HPF (NEGATIVE) 04/30/19 08:38 Urine Bacteria Negative /HPF (NEGATIVE) 04/30/19 08:38 Urine Mucus Few /HPF (NEGATIVE) 04/30/19 08:38 Ur Culture Indicated? No/not indicated 04/30/19 08:38 - Assessment and Plan 1: biliary colic . 14 week . to advance diet and follow as out Pt . - Problem Patient Problems: Patient Problems Abdominal pain (Acute) R10.9 Cholelithiasis (Acute) K80.20 Intractable abdominal pain (Acute) R10.9
[2019-05-01 13:13] VITALS: BP 93/54
== END 2019-05-01 13:30 | disposition home or self-care (01) ==
LOC: ER 07:12 → OBS 07:12 → ER 11:34
PROVIDERS: ADMIT Obstetrics & Gynecology Obstetrics; ATTEND Obstetrics & Gynecology Obstetrics
DX: R10.84 Generalized abdominal pain; K80.20 Calculus of gallbladder without cholecystitis without obstruction; Z3A.14 14 weeks gestation of pregnancy; O99.612 Diseases of the digestive system complicating pregnancy, second trimester; D72.828 Other elevated white blood cell count; R11.2 Nausea with vomiting, unspecified
CPT/HCPCS: 36415; 76705; 76815; 80053; 81001; 82150; 83690; 84702; 85025; 87086; 94760; 96365; 96374; 99284; A4222; G0378; J2405; J3490; J7030

== ENCOUNTER 2024-10-24 10:21 | Observation (INO) ==
[2024-10-24] MEDS ORDERED: PRECEDEX INJ VIAL ONE (11:09)
[2024-10-24] MEDS ORDERED: XYLOCAINE 2 % (PLAIN) ONE (11:09)
[2024-10-24] MEDS ORDERED: KETAMINE HCL ONE (11:09)
[2024-10-24] MEDS ORDERED: ULTANE GAS IN ONE (11:09)
[2024-10-24 11:58] LABS: MEAN PLATELET VOLUME 9.1 fL (7.4-11.0); RED CELL DISTRIBUTION WIDTH 14.0 % (11.6-16.5)
[2024-10-24 12:06] VITALS: BMI 27.8
[2024-10-24 12:19] LABS: SERUM PREGNANCY TEST, QUAL NEGATIVE <10 mIU/mL
[2024-10-24] MEDS: ZOFRAN INJ 4 MG VIAL IVP PRN (12:30)
[2024-10-24] MEDS: MORPHINE SULFATE INJ 2 MG INJ IVP PRN (12:30)
[2024-10-24] MEDS: D5 1/2 NS 1,000 ML 1,000 ML IV SCH (13:25)
[2024-10-24 14:02] LABS: CREATININE 0.86 mg/dL (0.55-1.02); eGFR NON BLACK RACES > 60 (>60)
[2024-10-24] MEDS: HIBICLENS WASH EXT ONE (21:00)
[2024-10-25 05:46] LABS: BLOOD/HEMOGLOBIN,URINE NEGATIVE (NEGATIVE); LEUKOCYTE ESTERASE ,URINE 1+ (NEGATIVE); NITRITES,URINE NEGATIVE (NEGATIVE)
[2024-10-25 05:48] LABS: APPEARANCE,URINE CLEAR (CLEAR); SQUAMOUS EPITHELIAL CELL,UR NUMEROUS /HPF (NEGATIVE)
[2024-10-25 06:57] LABS: MEAN PLATELET VOLUME 9.5 fL (7.4-11.0); RED CELL DISTRIBUTION WIDTH 13.9 % (11.6-16.5)
[2024-10-25 07:06] LABS: CREATININE 0.77 mg/dL (0.55-1.02); eGFR NON BLACK RACES > 60 (>60)
[2024-10-25] MEDS: OFIRMEV IV 1000 MG VIAL 1,000 MG/100 ML VIAL IV ONE (08:07)
[2024-10-25] MEDS: REGLAN INJ 10 MG VIAL ONE (08:07)
[2024-10-25] MEDS: DIPRIVAN VIAL 20 ML ONE (08:07)
[2024-10-25] MEDS: BRIDION ONE (08:07)
[2024-10-25] MEDS: ZOFRAN INJ 4 MG VIAL ONE (08:07)
[2024-10-25] MEDS: DECADRON INJ ONE (08:07)
[2024-10-25] MEDS: ZEMURON 100 MG VIAL ONE (08:07)
[2024-10-25] MEDS: TORADOL 30 MG VIAL ONE (08:07)
[2024-10-25] MEDS: FENTANYL VIAL INJ 100 mcg ONE (08:09)
[2024-10-25] MEDS: VERSED ONE (08:09)
[2024-10-25] MEDS: PEPCID 20 MG VIAL ONE (08:29)
[2024-10-25] MEDS ORDERED: LR 1,000 ML IV 1,000 ML IV ONE (08:57)
[2024-10-25] MEDS: ANCEF VIAL 1 GRAM ONE (09:10)
[2024-10-25] MEDS: NS 100 ML IV 100 ML ONE (09:10)
[2024-10-25] MEDS: ZOFRAN INJ 4 MG VIAL IVP PRN (09:15)
[2024-10-25] MEDS: REGLAN INJ 10 MG VIAL IVP PRN (09:15)
[2024-10-25] MEDS: LR 1,000 ML IV 700 ML IV PRN (09:15)
[2024-10-25] MEDS: PEPCID 20 MG VIAL IVP PRN (09:15)
[2024-10-25] MEDS: VERSED IVP PRN (09:16)
[2024-10-25] MEDS: ANCEF VIAL 1 GRAM IV PRN (09:28)
[2024-10-25] MEDS: DIPRIVAN VIAL 120 ML IVP PRN (09:35)
[2024-10-25] MEDS: ZEMURON 100 MG VIAL IVP PRN (09:35)
[2024-10-25] MEDS ORDERED: XYLOCAINE 2 % (PLAIN) PRN (09:35)
[2024-10-25] MEDS: KETAMINE HCL IV PRN (09:35)
[2024-10-25] MEDS: FENTANYL VIAL INJ 100 mcg IVP PRN (09:35)
[2024-10-25] MEDS: DECADRON INJ IVP PRN (09:40)
[2024-10-25] MEDS: BACTROBAN TOPICAL OINT ONE (09:40)
[2024-10-25] MEDS: MARCAINE 0.25% INJ ONE (09:40)
[2024-10-25] MEDS: TORADOL 30 MG VIAL IVP PRN (09:48)
[2024-10-25] MEDS: OFIRMEV IV 1000 MG VIAL 1,000 MG/100 ML VIAL IV PRN (09:48)
[2024-10-25] MEDS ORDERED: ZOFRAN INJ 4 MG VIAL IVP PRN (09:51)
[2024-10-25] MEDS ORDERED: BENADRYL INJ 50 MG VIAL IVP PRN (09:51)
[2024-10-25] MEDS ORDERED: DILAUDID INJ IVP PRN (09:51)
[2024-10-25] MEDS ORDERED: REGLAN INJ 10 MG VIAL IVP PRN (09:51)
[2024-10-25] MEDS ORDERED: BARHEMSYS INJ IVP PRN (09:51)
[2024-10-25] MEDS: DILAUDID INJ ONE (09:53)
[2024-10-25] MEDS: PRECEDEX INJ VIAL IVP PRN (10:17)
[2024-10-25] MEDS: BRIDION IVP PRN (10:21)
[2024-10-25] MEDS: DILAUDID INJ IVP PRN (10:21)
[2024-10-25] MEDS ORDERED: STERILE WATER IRRIGATION IR ONE (11:30)
[2024-10-25] MEDS: ANCEF VIAL 1 GRAM IVP SCH (14:54)
[2024-10-25] MEDS: NORCO 5/325 MG TAB PO PRN (15:03)
[2024-10-26 04:35] VITALS: TEMP 98.2
[2024-10-26 09:11] VITALS: BP 112/70; RESP 20; O2SAT 99
[2024-10-26 10:14] VITALS: PULSE 85
[2024-10-26] MEDS: COLACE CAP 100 MG PO PRN (11:30)
== END 2024-10-26 11:35 | disposition home or self-care (01) ==
LOC: MED/SURG
PROVIDERS: ADMIT Surgery; ATTEND Surgery